=== PATIENT | female | born 1995 | race African-American/Black ===

== ENCOUNTER 2016-07-27 14:32 | Emergency (ER) | payer OTHER ==
[~2016-07-27 14:32] MED LIST: DICL50 PO
[2016-07-27 14:34] VITALS: BP 126/76; PULSE 76; RESP 15; TEMP 98; O2SAT 98
== END 2016-07-27 14:50 | disposition left against medical advice (07) ==
LOC: NED 14:32
DX: R68.89 Other general symptoms and signs (principal); Z53.21 Procedure and treatment not carried out due to patient leaving prior to being seen by health care provider
CPT/HCPCS: 99281

== ENCOUNTER 2017-02-16 02:00 | Emergency (ER) | payer OTHER ==
[~2017-02-16] VITALS: Ht 160 cm; Wt 60.0 kg
[2017-02-16 02:03] VITALS: BP 134/82; PULSE 83; RESP 16; TEMP 97.7; O2SAT 96
[2017-02-16] MEDS ORDERED: BIRTH CONTROL PO (02:17)
[2017-02-16] MEDS ORDERED: KETOROLAC TROMETHAMINE 60 MG/2 ML (IM) VIAL IM ONE (02:30)
[2017-02-16] MEDS ORDERED: ORPHENADRINE INJ 60 MG/2 ML AMP IM ONE (02:30)
--- NOTE | 2017-02-16 02:31 | PD ---
HPI Chief Complaint: Pain: Acute or Chronic Time Seen by Provider: 02:20 Travel History International Travel<30 days: No Contact w/Intl Traveler<30days: No Traveled to known affect area: No History of Present Illness HPI Patient is a 21-year-old female presenting to the arm with bilateral palma pain. Pain started approximately 4 hours prior to arrival after patient had an cheerleading for football game. 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 She reports the pain is a 7 out of 10 and states the sore. Pain is worse with walking, somewhat relieved with rest. She denies any injury or trauma, no new jumps. She denies any history of palma splints. COUNTS INCLUDE 234 BEDS AT THE [facility] Past Medical History Medical History: Denies Significant Hx ?: Unknown LMP: END OF 01/12 Social History Alcohol Use: No Tobacco Use: No Substance Use: No Allergies-Medications (Allergen,Severity, Reaction): Coded Allergies: No Known Allergies (Unverified , 02/16/17) Reported Meds & Prescriptions Reported Meds & Active Scripts Active Reported [ Control] PO DAILY Review of Systems Except as stated in HPI: all other systems reviewed are Neg Musculoskeletal: Positive: Myalgias, Arthralgias Physical Exam Narrative GENERAL: Well-developed, well-nourished, alert female. Appears uncomfortable, in no acute distress. SKIN: Warm and dry. HEAD: Normocephalic. EYES: No scleral icterus. No injection or drainage. NECK: Supple, trachea midline. No JVD or lymphadenopathy. CARDIOVASCULAR: Regular rate and rhythm without murmurs, gallops, or rubs. RESPIRATORY: Breath sounds equal bilaterally. No accessory muscle use. GASTROINTESTINAL: Abdomen soft, non-tender, nondistended. MUSCULOSKELETAL: No cyanosis, or edema. No acute deformities noted to bilateral lower extremity's. 2+ pedal pulses bilaterally. Brisk less than 3 second capillary refill. Mildly tender to palpation over bilateral tibia. Negative Homans sign bilaterally BACK: Nontender without obvious deformity. No CVA tenderness. Data Data Last Documented VS Vital Signs Date Time Temp Pulse Resp B/P (MAP) Pulse Ox O2 Delivery O2 Flow Rate FiO2 02/16/17 02:03 97.7 83 16 134/82 (99) 96 Room Air Orders Orders Ketorolac Inj (Toradol Inj) (02/16/17 02:30) Orphenadrine Inj (Norflex Inj) (02/16/17 02:30) Ibuprofen (Motrin) (02/16/17 02:45) Cyclobenzaprine (Flexeril) (02/16/17 02:45) MDM Medical Decision Making Medical Screen Exam Complete: Yes Emergency Medical Condition: Yes Interpretation(s) Vital Signs Date Time Temp Pulse Resp B/P (MAP) Pulse Ox O2 Delivery O2 Flow Rate FiO2 02/16/17 02:03 97.7 83 16 134/82 (99) 96 Room Air Differential Diagnosis Myalgia versus palma splints versus strain versus spasm versus other Narrative Course Patient is a 21-year-old female that presented for evaluation of bilateral palma pain after cheerleading this evening. Physical examination is unremarkable, she will be given Toradol and Norflex now. Will reassess. Her vital signs are stable. Patient reports complete resolution of her pain. She was encouraged to take ibuprofen as needed and as directed for pain. She is encouraged follow-up with her primary doctor return to emergency department for any new or worsening symptoms. Additionally she can apply warm heat to the affected area as needed. Physical examination appears most consistent with the patient's grandson muscle strain. Diagnosis Primary Impression: Muscle strain Referrals: Primary Care Physician Patient Instructions: General Instructions, Muscle Strain (ED), Palma Splint Exercises (GEN), Palma Splints (ED) Additional Instructions: Follow-up with her primary doctor Take medications as needed and as directed for pain Apply warm heat to the affected area, continue range of motion exercises Return to emergency department for any new or worsening symptoms Med/Other Pt SpecificInfo: Prescription(s) given Scripts Ibuprofen (Ibuprofen) 800 Mg Tab 800 MG PO Q6HR Y for PAIN, #40 TAB 0 Refills Prov: Kirti Snyder 02/16/17 Disposition: 01 DISCHARGE HOME Condition: Stable Kirti Snyder Feb 16, 2017 02:31
[2017-02-16] MEDS ORDERED: IBUPROFEN 800 MG TAB PO ONE (02:45)
[2017-02-16] MEDS ORDERED: CYCLOBENZAPRINE HCL 10 MG TAB PO ONE (02:45)
[2017-02-16] MEDS ORDERED: IBUP800T23 PO (03:41)
== END 2017-02-16 03:51 | disposition home or self-care (01) ==
LOC: NEPD 02:00
DX: S86.912A Strain of unspecified muscle(s) and tendon(s) at lower leg level, left leg, initial encounter (principal); S86.911A Strain of unspecified muscle(s) and tendon(s) at lower leg level, right leg, initial encounter; Y93.45 Activity, cheerleading; Z79.3 Long term (current) use of hormonal contraceptives
CPT/HCPCS: 99283